=== PATIENT | male | born 1980 | race Caucasian/White ===

== ENCOUNTER 2022-06-10 06:36 | Day surgery (SDC) | payer OTHER ==
[2022-06-10] MEDS ORDERED: LIDOCAINE HCL 1% 50 MG/5 ML VL PF IJ ONE (06:37)
[2022-06-10] MEDS ORDERED: Depo-Medrol 40 MG/ML IM ONE (06:37)
[2022-06-10] MEDS ORDERED: BUPIVACAINE 0.5% VIAL IJ ONE (06:37)
[2022-06-10] MEDS ORDERED: DIPRIVAN 200 MG/20 ML IV ONE ×2 (08:34→08:42)
--- NOTE | 2022-06-10 09:53 | XRAY ---
Indication: Left shoulder injection. Intraoperative fluoroscopy provided for 11 seconds. Single digital spot image submitted for interpretation demonstrates needle tip projecting over the left glenohumeral joint superiorly. Small amount of contrast injected for needle tip placement. Correlate with intraoperative findings/report.
--- NOTE | 2022-06-10 09:54 | XRAY ---
Indication: Right shoulder injection. Intraoperative fluoroscopy provided for 7 seconds. Single digital spot image submitted for interpretation demonstrates needle tip projecting over the right glenohumeral joint superiorly. Small amount of contrast injected for needle tip placement. Correlate with intraoperative findings/report.
--- NOTE | 2022-06-10 09:55 | XRAY ---
11 seconds fluoroscopy time in surgery for intra-articular injection of the left shoulder.
--- NOTE | 2022-06-10 09:56 | XRAY ---
7 seconds fluoroscopy time in surgery for intra-articular injection of the right shoulder.
[2022-06-10] MEDS ORDERED: Lactated Ringers 1,000 ML IV ONE (10:21)
== END 2022-06-10 08:58 | disposition home or self-care (01) ==
LOC: SDC-PAIN 06:36
PROVIDERS: ATTEND Psychiatry & Neurology Pain Medicine
DX: M19.012 Primary osteoarthritis, left shoulder (principal); M19.011 Primary osteoarthritis, right shoulder; E11.9 Type 2 diabetes mellitus without complications; Z79.899 Other long term (current) drug therapy
CPT/HCPCS: 20610; 73030; 77002; 82947; J1030; J2001; J2704; Q9966